=== PATIENT | female | born 2000 ===

== ENCOUNTER → 2024-07-07 | Outpatient (CLI) | payer SELFPAY ==
[2024-07-07 15:29] LABS: Bacterial Vaginosis PCR Negative (NEGATIVE); Candida Group, PCR NOT DETECTED (NOT DETECT)
[2024-07-07 15:30] LABS: Candida glabrata-krusei, PCR DETECTED (NOT DETECT)
== END ==
LOC: LAB SHORT 13:06 → LAB 13:06
PROVIDERS: Family Medicine
DX: N89.8 Other specified noninflammatory disorders of vagina (principal)
CPT/HCPCS: 87481; 87661; 87801